=== PATIENT | male | born 1980 | race Caucasian/White ===

== ENCOUNTER 2019-11-28 09:52 | Outpatient (REF) | payer BC, SELFPAY ==
[2019-11-28 12:24] LABS: HCT 47.9 % (40.0-50.0); HGB 16.1 g/dL (13.5-17.5); Mean Corp. HGB Concentration 33.6 g/dL (32.0-36.0); Mean Corpuscular Hemoglobin 30.2 pg (27.0-33.0); Mean Corpuscular Volume 89.9 fL (80-95); Mean Platelet Volume 10.1 fL (8.0-11.0); Platelet Count 297 x1000/uL (130-400); RBC 5.33 m/cumm (4.50-6.00); RBC Distribution Width 12.7 % (11.8-14.1); White Blood Cell Count 6.87 k/cumm (4.4-10.8)
[2019-11-28 12:40] LABS: ALT 33 U/L (16-63); AST 14 U/L (15-37); Albumin 4.4 g/dL (3.4-5.0); Alkaline Phosphatase 52 U/L (46-116); Amylase 33 U/L (25-115); Anion Gap 9.2 mmol/L (3-11); BUN 13 mg/dL (7-18); Bilirubin, Total 0.7 mg/dL (0.2-1.0); CO2 27.8 mmol/L (21.0-32.0); Calcium 9.5 mg/dL (8.5-10.1); Chloride 103 mmol/L (98-107); Glucose 95 mg/dL (74-106); Lipase 79 U/L (73-393); Potassium 4.3 mmol/L (3.5-5.1); Sodium 140 mmol/L (136-145); Total Protein 7.5 g/dL (6.4-8.2)
== END 2019-11-28 10:12 ==
LOC: NCHCN 09:52
PROVIDERS: PCP Nurse Practitioner Family; Visit Provider Nurse Practitioner Family
DX: R10.11 Right upper quadrant pain (principal)
CPT/HCPCS: 80053; 83690; 85027; 82150

== ENCOUNTER 2019-12-02 02:09 | Outpatient (CLI) | payer BC, SELFPAY ==
--- NOTE | 2019-12-02 | DI.US_ITS ---
EXAM: US ABDOMEN CLINICAL HISTORY: RUQ ABD PAIN, R10.11 TECHNIQUE: Ultrasound performed using standard protocol. COMPARISON: No exams were available for comparison FINDINGS: Liver shows slightly increased echogenicity, consistent with mild fatty infiltration. No focal liver lesions or biliary dilatation is seen. The gallbladder has a normal appearance, without evidence of stones or wall thickening. The kidneys, spleen and aorta are unremarkable. The tail of the pancrea s is not well seen. IMPRESSION: Mild hepatic steatosis. No gallbladder abnormality. DATA REPOSITORY:
== END 2019-12-02 02:29 ==
PROVIDERS: PCP Nurse Practitioner Family; Visit Provider Nurse Practitioner Family
DX: R10.11 Right upper quadrant pain (principal); K76.0 Fatty (change of) liver, not elsewhere classified
CPT/HCPCS: 76700

== ENCOUNTER 2020-04-15 08:15 | Outpatient (REF) | payer BC, SELFPAY ==
[2020-04-15 15:03] LABS: Calculated LDL 115 mg/dL (<100); Cholesterol 183 mg/dL (<200); HDL Cholesterol 59 mg/dL (40-60); Triglyceride 46 mg/dL (<150)
== END 2020-04-15 08:35 ==
LOC: NCHCN 08:15
PROVIDERS: PCP Nurse Practitioner Family; Visit Provider Nurse Practitioner Family
DX: Z00.00 Encounter for general adult medical examination without abnormal findings (principal); Z13.220 Encounter for screening for lipoid disorders
CPT/HCPCS: 80061

== ENCOUNTER 2021-05-12 03:04 | Outpatient (CLI) | payer BC, SELFPAY ==
--- NOTE | 2021-05-12 15:05 | DI.MRI_ITS ---
Exam(s) MR BRAIN WO EXAM: MR BRAIN WO CLINICAL HISTORY: new perSistant daily headaches, lightheadedness,R51.9,R42 TECHNIQUE: Multiplanar multisequence MRI of the brain was performed. COMPARISON: No exams were available for comparison FINDINGS: VENTRICLES AND EXTRA AXIAL SPACES: Normal in size and morphology for the patient's age. MIDLINE SHIFT: None. CEREBRAL PARENCHYMA: No focus of restricted diffusion to suggest acute infarct. No space-occupying le blaine identified. HEMORRHAGE: None. BRAINSTEM/CEREBELLUM: Normal. CALVARIUM: Normal. VISUALIZED PARANASAL SINUSES/MASTOIDS:Clear. [place]: Normal flow void. PITUITARY GLAND: Unremarkable. OTHER FINDINGS: None. IMPRESSION: Unremarkable MRI of the brain. DATA REPOSITORY:
== END 2021-05-12 03:24 ==
PROVIDERS: Visit Provider Nurse Practitioner Adult Health
DX: R42 Dizziness and giddiness (principal); R51.9 Headache, unspecified
CPT/HCPCS: 70551

== ENCOUNTER 2022-11-15 16:05 | Outpatient (REF) | payer BC, SELFPAY ==
[2022-11-15 19:29] LABS: Bilirubin Negative (Negative); Blood Small (Negative); Clarity Clear (Clear); Glucose Negative (Negative); Ketones Negative (Negative); Leukocyte Esterase Negative (Negative); Nitrite Negative (Negative); Specific Gravity >= 1.030 (1.005-1.025); Urobilinogen 0.2 EU/dL (Up TO 0.2); pH 6.5 (5-8)
[2022-11-15 19:36] LABS: Bacteria Negative HPF (Negative); C & S Indicated? No; Casts Negative LPF (Negative); Crystals Negative HPF (Negative); Epithelial Cells Rare HPF (Negative); Mucus Negative (Negative); Other Cells Negative (Negative); RBC 0-2 HPF (0-2); WBC 0-2 HPF (0-5)
== END 2022-11-15 16:06 | disposition home or self-care (01) ==
LOC: NCHCN 16:05
PROVIDERS: Visit Provider Nurse Practitioner Family
DX: R31.9 Hematuria, unspecified (principal)
CPT/HCPCS: 81003; 81015

== ENCOUNTER 2022-11-27 13:26 | Outpatient (REF) | payer BC, SELFPAY ==
[2022-11-27 14:39] LABS: Abs Immature Grans 0.02 10^3/uL (0.0-0.06); Absolute Basophil Count 0.04 10^3/uL (0.0-0.2); Absolute Eosinophil Count 0.02 10^3/uL (0.0-0.7); Absolute Lymphocyte Count 1.48 10^3/uL (1.2-3.4); Absolute Monocyte Count 0.57 10^3/uL (0.1-0.8); Absolute Neutrophil Count 5.53 10^3/uL (1.2-6.7); Basophils % 0.5; Eosinophils % 0.3; HGB 16.7 g/dL (13.5-17.5); Immature Grans % 0.3; Lymphocytes % 19.3; MCH 29.6 pg (27.0-33.0); MCHC 34.1 % (32.0-36.0); MCV 87 fL (80-95); MPV 9.8 fL (8.0-11.0); Monocytes % 7.4; Neutrophils % 72.2; Platelet Count 310 10^3/uL (130-400); RBC 5.64 10^6/uL (4.36-5.78); RDW 12.4 % (11.8-14.1); RDW-SD 39.3 fL; WBC 7.66 10^3/uL (4.4-10.8)
[2022-11-27 14:54] LABS: ALT 29 U/L (16-63); AST 13 U/L (15-37); Albumin 4.9 g/dL (3.4-5.0); Alkaline Phosphatase 57 U/L (46-116); Anion Gap 10.7 mmol/L (3-11); BUN 17 mg/dL (7-18); Bilirubin, Total 0.6 mg/dL (0.2-1.0); CO2 27.3 mmol/L (21.0-32.0); CREATININE 0.8 mg/dL (0.70-1.30); Chloride 103 mmol/L (98-107); Estimated GFR 114.74 (mL/min/1.73m2); Glucose 102 mg/dL (74-106); Potassium 4.4 mmol/L (3.5-5.1); Sodium 141 mmol/L (136-145); Total Protein 8.2 g/dL (6.4-8.2)
[2022-11-27 22:55] LABS: PSA, Screening 1.6 ng/mL (<=2.5)
[2022-11-28 14:50] LABS: Chlamydia Result Negative (Negative); GC Result Negative (Negative)
== END 2022-11-27 13:27 | disposition home or self-care (01) ==
LOC: LBN 13:26
PROVIDERS: Visit Provider Specialist/Technologist Athletic Trainer
DX: R31.9 Hematuria, unspecified (principal); M54.9 Dorsalgia, unspecified
CPT/HCPCS: 80053; 84153; 87491; 87591; 85025; 87086

== ENCOUNTER 2023-07-27 16:40 | Outpatient (REF) | payer BC, SELFPAY ==
[2023-07-27 19:11] LABS: HCT 44.5 % (40.0-50.0); HGB 15.1 g/dL (13.5-17.5); MCH 30.1 pg (27.0-33.0); MCHC 33.9 % (32.0-36.0); MCV 89 fL (80-95); MPV 10.1 fL (8.0-11.0); Platelet Count 294 10^3/uL (130-400); RBC 5.01 10^6/uL (4.36-5.78); RDW 12.5 % (11.8-14.1); RDW-SD 40.7 fL; WBC 6.67 10^3/uL (4.4-10.8)
[2023-07-27 19:31] LABS: Anion Gap 8.1 mmol/L (3-11); BUN 19 mg/dL (7-18); CO2 26.9 mmol/L (21.0-32.0); CREATININE 0.8 mg/dL (0.70-1.30); Calcium 9.7 mg/dL (8.5-10.1); Chloride 104 mmol/L (98-107); Estimated GFR 114.02 (mL/min/1.73m2); FREE T4 0.99 ng/dL (0.76-1.46); Glucose 95 mg/dL (74-106); Potassium 4.1 mmol/L (3.5-5.1); Sodium 139 mmol/L (136-145); TSH 1.04 uIU/mL (0.36-3.74)
== END 2023-07-27 16:41 | disposition home or self-care (01) ==
LOC: NCHCN 16:40
PROVIDERS: Visit Provider Physician Assistant
DX: R42 Dizziness and giddiness (principal)
CPT/HCPCS: 80048; 85027; 84439; 84443

== ENCOUNTER 2023-11-02 15:48 | Outpatient (REF) | payer BC, SELFPAY ==
[2023-11-02 15:16] LABS: HCT 45.5 % (40.0-50.0); HGB 15.5 g/dL (13.5-17.5); MCH 29.3 pg (27.0-33.0); MCHC 34.1 % (32.0-36.0); MCV 86 fL (80-95); MPV 9.8 fL (8.0-11.0); Platelet Count 310 10^3/uL (130-400); RBC 5.29 10^6/uL (4.36-5.78); RDW 11.9 % (11.8-14.1); RDW-SD 37.5 fL; WBC 7.36 10^3/uL (4.4-10.8)
[2023-11-02 15:41] LABS: ALT 29 U/L (16-63); AST 15 U/L (15-37); Albumin 4.2 g/dL (3.4-5.0); Alkaline Phosphatase 51 U/L (46-116); Anion Gap 11.2 mmol/L (3-11); BUN 22 mg/dL (7-18); Bilirubin, Total 0.6 mg/dL (0.2-1.0); CO2 26.8 mmol/L (21.0-32.0); CREATININE 0.8 mg/dL (0.70-1.30); Calcium 9.6 mg/dL (8.5-10.1); Chloride 102 mmol/L (98-107); Estimated GFR 114.02 (mL/min/1.73m2); Glucose 99 mg/dL (74-106); Lipase 22 U/L (16-77); Potassium 4.3 mmol/L (3.5-5.1); Sodium 140 mmol/L (136-145); Total Protein 7.8 g/dL (6.4-8.2)
== END 2023-11-02 15:49 | disposition home or self-care (01) ==
LOC: NCHCN 15:48
PROVIDERS: PCP Physician Assistant; Visit Provider Physician Assistant
DX: K29.70 Gastritis, unspecified, without bleeding (principal)
CPT/HCPCS: 80053; 83690; 85027

== ENCOUNTER 2023-11-06 11:35 | Outpatient (REF) | payer BC, SELFPAY | END 2023-11-06 11:36 | disposition home or self-care (01) | LOC: LBN 11:35 | PROVIDERS: PCP Physician Assistant; Visit Provider Nurse Practitioner Family | DX: J02.9 Acute pharyngitis, unspecified (principal) | CPT/HCPCS: 87070 ==

== ENCOUNTER 2023-11-12 04:21 | Outpatient (CLI) | payer BC, SELFPAY | END 2023-11-12 04:22 | disposition home or self-care (01) | LOC: LBO 04:21 | PROVIDERS: PCP Physician Assistant; Visit Provider Physician Assistant | DX: K29.70 Gastritis, unspecified, without bleeding (principal) | CPT/HCPCS: 36415; 83013 ==

== ENCOUNTER 2024-10-13 15:40 | Emergency (ER) | payer BC, SELFPAY ==
--- NOTE | 2024-10-13 15:30 | RT.EKG_ITS ---
APPROVED REPORT Exam: Resting ECG Reason for Exam: chest pain Patient Location: E HR:69 bpm ECG Measurements Heart Rate 69 AXIS NC 172 P 69 QRSd 94 QRS 37 QT 375 T 47 QTc 403 Conclusion Sinus rhythm...normal P axis, V-rate 60- [address] segment or T wave abnormalities to suggest occlusive WA
[2024-10-13 15:54] VITALS: BP 139/82; PULSE 68; RESP 15; O2SAT 98
[2024-10-13 15:57] VITALS: RESP 20
--- NOTE | 2024-10-13 16:00 | DI.RAD_ITS ---
Exam(s) XR CHEST 2V PA LATERAL EXAM: XR CHEST 2V PA LATERAL CLINICAL HISTORY: Chest pain TECHNIQUE: 2D digital imaging was performed of the chest. Two images were obtained. PA and lateral views were obtained. COMPARISON: No exams were available for comparison FINDINGS: MEDIASTINUM: Normal. HEART: Normal. PULMONARY VASCULATURE: Normal. LUNGS: Clear. PLEURAL SPACE: No pleural effusion or pneumothorax. BONE:Within normal limits for the patient's age. OTHER FINDINGS:Normal. IMPRESSION: No acute pulmonary findings. DATA REPOSITORY: RADIATION DOSE DELIVERED:
[2024-10-13 16:17] LABS: Abs Immature Grans 0.03 10^3/uL (0.0-0.06); Absolute Basophil Count 0.05 10^3/uL (0.0-0.2); Absolute Eosinophil Count 0.13 10^3/uL (0.0-0.7); Absolute Lymphocyte Count 1.75 10^3/uL (1.2-3.4); Absolute Monocyte Count 0.83 10^3/uL (0.1-0.8); Absolute Neutrophil Count 6.26 10^3/uL (1.2-6.7); Basophils % 0.6 %; Eosinophils % 1.4 %; HCT 46.6 % (40.0-50.0); HGB 15.8 g/dL (13.5-17.5); Immature Grans % 0.3 %; Lymphocytes % 19.3 %; MCH 30.2 pg (27.0-33.0); MCHC 33.9 % (32.0-36.0); MCV 89 fL (80-95); MPV 9.5 fL (8.0-11.0); Monocytes % 9.2 %; Neutrophils % 69.2 %; Platelet Count 271 10^3/uL (130-400); RBC 5.24 10^6/uL (4.36-5.78); RDW 12.3 % (11.8-14.1); RDW-SD 40.5 fL; WBC 9.05 10^3/uL (4.4-10.8)
--- OUTSIDE RECORDS SUMMARY | 2024-10-13 16:33 | XMS_ITS | Encounter Summary ---
Author Organization [facility] Address [address] [place] [address] Care Team Providers Care Recording Studio Intern Name Role Phone Johann Rodriguez MD Primary Care Provider Unavailabl e Encounter Details Date Type Department Care Team (Late st Contact Info) Description 12/23/2009 Results Only [facility] Laboratory Services - [facility] ([facility]) [address] [place] [address] [phone] Joss Stephen MD [address] [place] [id number] Social History Tobacco Use Types Packs/Day Years Used Date Smoking Tobacco: Never Assessed Sex and Gender Information Value Date Recorded Sex Assigned at Not on file Legal Sex Male 18:26 EST Gender Identity Not on file Sexual Orientation Not on file documented as of this encounter Plan of Treatment Not on file documented as of this encounter Procedures Procedure Name Priority Date/Time Associated Diagnosis Comments SURGICAL PATHOLOGY Routine 12/23/2009 0:00 EDT documented in this encounter Results * SURGICAL PATHOLOGY (12/23/2009 0:00 EDT) Pathology Report: SURGICAL PATHOLOGY REPORT ? Reports generated via electronic interface contain original data; ? however they are lacking the format of the original report. ? Caution should be taken when reading/interpreti ng unformatted reports. ? Name: ? IZQUIERDO, JOSE T ? Accession #: ? [id number] ? : ? 1980 (Age: 29) ??M ? Collect Date: ? 12/23/2009 ? Location: ? [facility] ? Receive Date: ? 12/23/2009 ? Provider: JOSS STEPHEN MD ? Copy to: MOLLIE D CHAMBERLAIN ACID CORRECTION HAND ? TOBY ANTONIO MD ? Final Pathologic Diagnosis: ? Stomach, body, biopsies: ? - Gastric body mucosa with mild focal superficial chronic gastritis. ?- negative for Helicobacter-pylor i-like organisms on H&E. ? Document reviewed and electronically signed by: ? Naz Epperson, MBChB ? Report ??Date: 12/27/2009 16:25 ? By the signature above, the attending physician certifies that he/she has ? personally conducted a gross and/or microscopic examination of the described ? specimens and rendered or confirmed the above diagnosis. ? Specimen(s) Received: ? Stomach body ? Clinical History: ? Epigastric pain ? Gross Description: ? Received in Hollande's fixative labelled Jose Izquierdo and bx body of stomach are two gagnon-pink soft tissues averaging 0.6 x 0.2 x 0.2 cm. ??The ? specimen is entirely submitted in one cassette. ??(Jake Iqbal)/mms ? End of Report ? [facility] 12/23/2009 12/23/2009 7:2 6 EDT us Joss Stephen MD PATHOLOGY ORDERABLES Final Result [facility] [address] [place] [address] documented in this encounter Visit Diagnoses Not on filedocumented in this encounter Care Teams Recording Studio Intern Relationship Specialty Start Date End Date Johann Rodriguez MD PCP - General 12/23/09 12/26/09 documented as of this encounter
--- OUTSIDE RECORDS SUMMARY | 2024-10-13 16:33 | XMS_ITS | Clinical Summary ---
Author Organization [facility] Address [address] [place] [address] Care Team Providers Care Cull Grader Name Role Phone Alvaro Rothman DO Primary Care Provider [phone] Social History Tobacco Use Types Packs/Day Years Used Date Smoking Tobacco: Never Assessed Sex and Gender Information Value Date Recorded Sex Assigned at Not on file Legal Sex Male 18:26 EST Gender Identity Not on file Sexual Orientation Not on file Plan of Treatment Health Maintenance Due Date Last Done Comments Hepatitis C Screen 1980 Hepatitis B Vaccine (1 of 3 - 19+ 3-dose series) 01/31 COVID-19 Vaccine ( season) 2024 Insurance [facility] Care Teams Cull Grader Relationship Specialty Start Date End Date Alvaro Rothman DO [address] [place] [address] PCP - General 10/29/13
--- OUTSIDE RECORDS SUMMARY | 2024-10-13 16:33 | XMS_ITS | Referral Summary ---
Author Organization [facility] Address [address] [place] [address] Care Team Providers Care Aerobics Teacher Name Role Phone Alvaro Rothman DO Primary Care Provider [phone] Social History Tobacco Use Types Packs/Day Years Used Date Smoking Tobacco: Never Assessed Sex and Gender Information Value Date Recorded Sex Assigned at Not on file Legal Sex Male 18:26 EST Gender Identity Not on file Sexual Orientation Not on file Plan of Treatment Not on file Insurance [facility] Care Teams Aerobics Teacher Relationship Specialty Start Date End Date Alvaro Rothman DO [address] [place] [id number] PCP - General 10/29/13
--- OUTSIDE RECORDS SUMMARY | 2024-10-13 16:33 | XMS_ITS | Encounter Summary ---
Author Organization [facility] Address [address] [place] [address] Care Team Providers Care Admitting Clerk Name Role Phone Alvaro Rothman DO Primary Care Provider [phone] Encounter Details Date Type Department Care Team (Late st Contact Info) Description 02/08/2024 Lab Requisition [facility] Pathology & Laboratory Medicine - [facility] [address] [place] [address] Danny Odonnell MD [address] [place] [phone] Epigastric pain Social History Tobacco Use Types Packs/Day Years [...] Priority Date/Time Associated Diagnosis Comments SURGICAL PATHOLOGY Today 02/07/2024 13 :35 EDT Epigastric pain documented in this encounter Results * SURGICAL PATHOLOGY (02/07/2024 13:35 EDT) Note to Patient The following pathology results have been interpreted by your pathologist and may be available to you before your health provider has had the opportunity to review them. Please allow time for your provider to receive these results and explore management options, if applicable. 02/11/2024 15:44 EDT [facility] Final Diagnosis A. DUODENUM, BIOPSY: - Duodenal mucosa with no significant pathologic change. - No evidence of gluten-sensitive enteropathy (celiac sprue). B. DUODENUM, BULB, BIOPSY: - Duodenal mucosa with no significant pathologic change. C. STOMACH, ANTRUM, BIOPSY: - Antral-type mucosa with changes consistent with a mild reactive (chemical) gastropathy. - No intestinal metaplasia or dysplasia. - No evidence of Helicobacter pylori on routine H&E stain. D. STOMACH, BODY, BIOPSY: - Oxyntic-type mucosa with no significant pathologic change. - No intestinal metaplasia or dysplasia. - No evidence of Helicobacter pylori on routine H&E stain. 02/11/2024 15:44 [facility] Diagnosis Comment The technical component of the specimen processing was performed at the [facility] Pathology Department, [address] [place] [address] (CLIA [id number]). The professional component of the specimen evaluation (slide review and issuing of the final diagnosis) was performed at [facility], [address] [place] [address] (CLIA License Number [id number]). 02/11/2024 15:44 [facility] Attestation By the signature below, the attending physician certifies that they have 1) personally conducted a gross and/or microscopic examination of the described specimen(s), and/or personally interpreted the results of laboratory testing of the described specimen(s), and 2) personally rendered or confirmed the above diagnosis. 02/11/2024 15:44 [facility] at 1544 Clinical History EGD hx GERD, epigastric pain; clinical diagnosis code: R10.13 02/11/2024 15:44 [facility] Gross Description A. Received in formalin labelled with proper patient identification (initials H, N) and A. Duodenum are 3 gagnon-brown tissues (0.2 x 0.1 x 0.1 cm to 0.6 x 0.2 x 0.1 cm). Entirely submitted in A1. B. Received in formalin labelled with proper patient identification (initials H, N) and B. Duodenal bulb are 2 gagnon-brown tissues (0.4 x 0.2 x 0.1 cm and 0.6 x 0.1 x 0.1 cm). Entirely submitted in B1. C. Received in formalin labelled with proper patient identification (initials H, N) and C. Gastric antrum are 2 gagnon-brown tissues (0.2 x 0.2 x 0.1 cm and 0.4 x 0.3 x 0.2 cm). Entirely submitted in C1. D. Received in formalin labelled with proper patient identification (initials H, N) and D. Gastric body are 3 gagnon-brown tissues (0.3 x 0.1 x 0.1 cm to 0.5 x 0.2 x 0.1 cm). Entirely submitted in D1, however the smallest tissue may not survive processing. WARREN MCCABE(ASCP) 02/08/2024 8:20 02/11/2024 15:44 EDT [facility] Performing Lab [facility] 02/11/2024 15:44 EDT [facility] Scanned Images 02/11/2024 15:44 EDT [facility] Tissue GASTRIC CORPUS STRUCTURE / Unknown 02/07/2024 13:35 EDT 02/08/2024 7:41 EDT Tissue specimen (specimen) DUODENAL AMPULLA STRUCTURE / Unknown 02/07/2024 13:35 EDT 02/08/2024 7:41 EDT Tissue specimen (specimen) PYLORIC ANTRUM STRUCTURE / Unknown 02/07/2024 13:35 EDT 02/08/2024 7:41 EDT Tissue specimen (specimen) GASTRIC CORPUS STRUCTURE / Unknown 02/07/2024 13:35 EDT 02/08/2024 7:41 EDT us Danny Odonnell MD PATHOLOGY ORDERABLES Final Result [facility] [address] [place] [address] documented in this encounter Visit Diagnoses Diagnosis Epigastric pain Abdominal pain, epigastric documented in this encounter Care Teams Admitting Clerk Relationship Specialty Start Date End Date Alvaro Rothman DO [address] [place] [address] PCP - General 10/29/13 documented as of this encounter
--- OUTSIDE RECORDS SUMMARY | 2024-10-13 16:33 | XMS_ITS | Encounter Summary ---
Author Organization [facility] Address [address] [place] [address] Care Team Providers Care Parking Enforcement Officer Name Role Phone Celestino Acosta MD Primary Care Provider Unavail able Encounter Details Date Type Department Care Team (Late st Contact Info) Description 10/25/2013 Results Only [facility]- [facility] [phone] Desiree Rothman, DO [address] [place] [phone] Social History Tobacco Use Types Packs/Day Years [...] Date/Time Associated Diagnosis Comments SURGICAL PATHOLOGY Routine 10/25/2013 21 :40 EST documented in this encounter Results * SURGICAL PATHOLOGY (10/25/2013 21:40 EST) Pathology Report: SURGICAL PATHOLOGY REPORT Reports generated via electronic interface contain original data; however they are lacking the format of the original report. Caution should be taken when reading/interpreti ng unformatted reports. Name: ? JOSE IZQUIERDO ? Accession #: ? [id number] ? : ? 1980 (Age: 33) ??M ? Collect Date: ? 10/25/2013 ? Location: ? [facility] ? Receive Date: ? 10/27/2013 ? Provider: DESIREE ROTHMAN DO Copy to: ? Final Pathologic Diagnosis: APPENDIX, APPENDECTOMY: - ??Acute appendicitis. Document reviewed and electronically signed by: MALINI XAVIER MD Report ??Date: 11/02/2013 12:57 By the signature above, the attending physician certifies that he/she has personally conducted a gross and/or microscopic examination of the described specimens and rendered or confirmed the above diagnosis. Specimen(s) Received: Appendix Clinical History: Appendicitis Gross Description: ? Received in formalin labelled with proper patient identification (initials H, N) and appendix is a vermiform appendix (7.6 cm in length x 0.5-0.8 cm in diameter), with a moderate amount of attached mesoappendix. The proximal margin is stapled. ? The serosa is pink-gagnon and hyperemic. ??The average wall thickness is 0.2 cm with no discernable perforation site. The lumen ranges from 0.1 cm to 0.2 cm in diameter and contains no fecalith. The proximal margin is inked black. ? The section adjacent to the proximal stapled margin, two leasing representative cross sections and one-half of the longitudinally bisected distal tip are submitted in 1. Tequila Iqbal 10/28/2013 09:52 AM End of Report [facility] 10/25/2013 21:4 0 EST 10/27/2013 21:40 EST us Desiree Rothman DO PATHOLOGY ORDERABLES Final Res ult [facility] [address] [place] [address] documented in this encounter Visit Diagnoses Not on filedocumented in this encounter Care Teams Parking Enforcement Officer Relationship Specialty Start Date End Date Celestino Acosta MD PCP - General 12/27/09 10/28/13 documented as of this encounter
--- OUTSIDE RECORDS SUMMARY | 2024-10-13 16:33 | XMS_ITS | Encounter Summary ---
Author Organization [facility] Address [address] [place] [address] Care Team Providers Care Material Loader Name Role Phone Alvaro Rothman DO Primary Care Provider [phone] Encounter Details Date Type Department Care Team (Late st Contact Info) Description 11/27/2022 Lab Requisition [facility] Pathology & Laboratory Medicine - [facility] [address] [place], [place] [id number] Outr Resulting Lab, Provider Social History Tobacco Use Types Packs/Day Years [...] Procedure Name Priority Date/Time Associated Diagnosis Comments CHLAMYDIA/N. GONORRHOEAE AMPLIFIED NUCLEIC ACID Routine 11/27/2022 11:20 EST documented in this encounter Results * CHLAMYDIA/N. GONORRHOEAE AMPLIFIED RNA (11/27/2022 11:20 EST) Neisseria gonorrhoeae Result Negative Negative 11/28/2022 14:45 EST [facility] Chlamydia trachomatis Result Negative Negative 11/28/2022 14:45 EST [facility] Urine URINE / Unknown 11/27/2022 1 1:20 EST 11/27/2022 22:05 EST us Provider Outr Resulting Lab MICROBIOLOGY - GENER AL ORDERABLES Final Result [facility] [address] [place] [address] documented in this encounter Visit Diagnoses Not on filedocumented in this encounter Care Teams Material Loader Relationship Specialty Start Date End Date Alvaro Rothman DO [address] [place] [address] PCP - General 10/29/13 documented as of this encounter
--- OUTSIDE RECORDS SUMMARY | 2024-10-13 16:33 | XMS_ITS | Encounter Summary ---
Author Organization [facility] Address [address] [place] [address] Care Team Providers Care Gaming Table Operator Name Role Phone Alvaro Rothman DO Primary Care Provider [phone] Encounter Details Date Type Department Care Team (Late st Contact Info) Description 11/27/2022 Lab Requisition [facility] Pathology & Laboratory Medicine - [facility] [address] [place], [place] [address] Outr Resulting Lab, Provider Social History Tobacco [...] Procedure Name Priority Date/Time Associated Diagnosis Comments PSA TOTAL, DIAGNOSTIC Routine 11/27/2022 11:20 EST documented in this encounter Results * PSA TOTAL, DIAGNOSTIC (11/27/2022 11:20 EST) PSA 1.6 <=2.5 ng/mL 11/27/2022 22:50 EST [facility] Blood VENOUS BLOOD / Unknown 11/27/2022 11:20 EST 11/27/2022 21:52 EST Narrative [facility] - 11/27/2022 22:50 EST NOTE: Serum PSA concentration should not be interpreted as absolute evidence for the presence or absence of malignant disease. Assayed on Siemens ADVIA Real Life Plusaur XPT using chemiluminescent technology.??Values obtained by using different assay methods cannot be used interchangeably. us Provider Outr Resulting Lab CHEMISTRY & BLOOD GA S ORDERABLES Final Result [facility] [address] [place] [address] documented in this encounter Visit Diagnoses Not on filedocumented in this encounter Care Teams Gaming Table Operator Relationship Specialty Start Date End Date Alvaro Rothman DO [address] [place], [place] [id number] PCP - General 10/29/13 documented as of this encounter
--- OUTSIDE RECORDS SUMMARY | 2024-10-13 16:33 | XMS_ITS | Encounter Summary ---
Author Organization [facility] Address [address] [place] [address] Care Team Providers Care Granulator Name Role Phone Celestino Acosta MD Primary Care Provider Unavail able Encounter Details Date Type Department Care Team (Latest Contact Info) Description 10/25/2013 12:43 EST - 10/25/2013 23:59 EST Hospital Encounter [address] [address] Unknown, Provider, MD Discharge Disposition: Home or Self Care Social History Tobacco Use Types Packs/Day Years Used Date Smoking Tobacco: Never Assessed Sex and Gender Information Value Date Recorded Sex Assigned at Not on file Legal Sex Male 18:26 EST Gender Identity Not on file Sexual Orientation Not on file documented as of this encounter Discharge Disposition Disposition Code Departure Means Destination Home or Self Longterm documented in this encounter Plan of Treatment Not on file documented as of this encounter Visit Diagnoses Not on filedocumented in this encounter Care Teams Granulator Relationship Specialty Start Date End Date Celestino Acosta MD PCP - General 12/27/09 10/28/13 documented as of this encounter
[2024-10-13 16:40] LABS: ALT 24 U/L (16-63); AST 15 U/L (15-37); Albumin 4.3 g/dL (3.4-5.0); Alkaline Phosphatase 49 U/L (46-116); Anion Gap 6.5 mmol/L (3-11); BUN 19 mg/dL (7-18); Bilirubin, Total 0.62 mg/dL (0.2-1.0); CO2 31.5 mmol/L (21.0-32.0); CREATININE 1.1 mg/dL (0.70-1.30); Calcium 9.5 mg/dL (8.5-10.1); Chloride 105 mmol/L (98-107); Estimated GFR 85.95 (mL/min/1.73m2); Glucose 90 mg/dL (74-106); Lipase 27 U/L (<78); NT-proBNP 26 pg/mL (<300); PTT Activated 23.1 sec (20.6-30.2); Potassium 3.9 mmol/L (3.5-5.1); Prothrombin Time 9.9 sec (9.1-11.1); Sodium 143 mmol/L (136-145); Total Protein 7.8 g/dL (6.4-8.2)
[2024-10-13 16:42] LABS: Troponin I < 4 ng/L (<or=76)
--- NOTE | 2024-10-13 17:36 | ED.GENADUL_ITS ---
Discharge Plan Disposition Patient Disposition: Home Condition: Good Discharge Details Clinical Impression: Chest pain Primary Care Provider: Jatin Sutherland ED Provider: Jane Carney Home Meds and New Rx's Prescriptions: Discontinued prochlorperazine maleate 5 mg tablet See Rx Instructions PO TID PRN (Reason: nausea and vomiting) Qty: 30 3RF Rx Instructions: 5-10 PO three times a day PRN; Discharge Instructions Instructions: Chest Pain, Adult ED Additional Instructions: Continue to use tylenol, ibuprofen, and lidocaine patches at home. Call your primary care doctor in the morning to schedule an appointment for within the next 72 hours to followup on your visit here. Return to the emergency department for new or worsening symptoms including new/different/worse chest pain, difficutly breathing, feeling like you are going to pass out, or if you have any other concerns. HPI General Mode of arrival: ambulatory . Date/Time Provider Initiated Documentation: 10/13/24 16:10 . Limitations to Documentation: no limitations . Information obtained by: patient . HPI Narrative: 44yo M presenting from for chest pain. Crampy, left sided, non-radiating. Pain has been present on and of for about 2 weeks. Initially it was worse when moving his head or left shoulder, however now it seems unaffected by movement when it is present. Slightly improved with tylenol and ibuprofen and lidocaine patches at home. Not positional. Not worse with exertion. No associated shortness of breath. Does not recall any injury to the area, but did attribute to a pulled muscle at onset (is working on his house). Otherwise in his usual state of health with no fevers, chills, rash, nausea, vomiting, abdominal pain, LE edema, or other concerns. Related Data Allergies Allergy/AdvReac Type Severity Reaction Status Date / Time No Known Allergies Allergy Unverified 10/13/24 18:06 General Stated Complaint: Chest Pain ANGÉLICA: 3 Review of Systems Narrative: see HPI Exam Narrative Exam Narrative: General: Alert, well appearing, well nourished, in no acute distress. Head: Normocephalic, atraumatic Neck: Trachea midline, ?Neck supple. ENT: ?MMM.? No oropharygeal lesions or exudate. Cardiac: ?RRR, no murmurs appreciated Resp: No respiratory distress. CTAB. Abd: ?Soft, non-distended, nontender Extremities: ?No deformities.? No peripheral edema. Neurologic: GCS 15. ? Moves all extremities freely against gravity Course Vital Signs Vital signs: Vital Signs Pulse 68 10/13/24 15:54 Respiratory Rate 15 10/13/24 15:54 Blood Pressure 139/82 10/13/24 15:54 Pulse Oximetry 98 10/13/24 15:54 Pulse 68 10/13/24 15:54 Respiratory Rate 20 10/13/24 15:57 Respiratory Effort Normal 10/13/24 15:57 Respiratory Depth Normal 10/13/24 15:57 Respiratory Pattern Normal 10/13/24 15:57 Blood Pressure 139/82 10/13/24 15:54 Blood Pressure Position Sitting 10/13/24 15:54 Pulse Oximetry 98 10/13/24 15:54 Oxygen Delivery Method Room Air 10/13/24 15:54 Oxygen Flow Rate 0 10/13/24 15:54 Lab/Test Results Lab/Test Results: Laboratory Tests Range/Units 10/13/24 16:10 WBC (4.4-10.8) 10^3/uL 9.05 RBC (4.36-5.78) 10^6/uL 5.24 Hgb (13.5-17.5) g/dL 15.8 Hct (40.0-50.0) % 46.6 MCV (80-95) fL 89 MCH (27.0-33.0) pg 30.2 MCHC (32.0-36.0) % 33.9 RDW (11.8-14.1) % 12.3 Plt Count (130-400) 10^3/uL 271 MPV (8.0-11.0) fL 9.5 Immature Gran % % 0.3 Neutrophils % % 69.2 Lymphocytes % % 19.3 Monocytes % % 9.2 Eosinophils % % 1.4 Basophils % % 0.6 Nucleated RBC % (0.0-0.3) % 0.0 Absolute Neutrophils (1.2-6.7) 10^3/uL 6.26 Absolute Lymphocytes (1.2-3.4) 10^3/uL 1.75 Absolute Monocytes (0.1-0.8) 10^3/uL 0.83 H Absolute Eosinophils (0.0-0.7) 10^3/uL 0.13 Absolute Basophils (0.0-0.2) 10^3/uL 0.05 PT (9.1-11.1) sec 9.9 INR (0.9-1.1) 1.0 APTT (20.6-30.2) sec 23.1 Sodium (136-145) mmol/L 143 Potassium (3.5-5.1) mmol/L 3.9 Chloride (98-107) mmol/L 105 Carbon Dioxide (21.0-32.0) mmol/L 31.5 Anion Gap (3-11) mmol/L 6.5 BUN (7-18) mg/dL 19 H Creatinine (0.70-1.30) mg/dL 1.1 Est GFR (CKD-EPI 2020) (mL/min/1.73m2) 85.95 Glucose (74-106) mg/dL 90 Calcium (8.5-10.1) mg/dL 9.5 Magnesium (1.8-2.4) mg/dL 2.0 Total Bilirubin (0.2-1.0) mg/dL 0.62 AST (15-37) U/L 15 ALT (16-63) U/L 24 Alkaline Phosphatase (46-116) U/L 49 Troponin I (<or=76) ng/L < 4 NT-Pro-B Natriuret Pep (<300) pg/mL 26 Total Protein (6.4-8.2) g/dL 7.8 Albumin (3.4-5.0) g/dL 4.3 Lipase (<78) U/L 27 Medical Decision Making 44yo M presenting from for 2 weeks of intermittent crampy, left sided, non- radiating chest pain. Vital signs reassuring on arrival. Well appearing on exam, lungs CTAB, no reproducible tenderness. EKG NSR, appropriate intervals, no ST segment or T wave abnormalities to suggest occlusive TX. PERC negative; would not get dimer or CT imaging. Labs reviewed as below, CBC reassuring with no leukoctosis or anemia, CMP with no actionable abnormalities, Mg normal, coags normal, lipase normal (unlikely pancreatitis), BNP normal, initial troponon negative and 1 hour repeat 4. CXR independently reviewed; no focal pneumonia or pneumothorax on my view, agree with radiology read below. HEART score low-risk; would not further pursue ACS/trend troponin/etc. On reassessment he remains well appearing with reassuring vital signs. Unclear etiology of pain, ?MSK. Will treat with toradol, lidocaine patch, and advise close PCP followup. Discharged home; discharge instructions and return precautions were reviewed with patient who verbalized understanding. All questions were answered and he is in full agreement with the plan. Imaging Data Radiologic Study: Imaging: X-Ray Radiologist's impression: IMPRESSION: No acute pulmonary findings. Lab Data Lab results reviewed: Yes I reviewed the patient's lab results. Labs: Laboratory Tests Range/Units 10/13/24 10/13/24 16:10 17:15 WBC (4.4-10.8) 10^3/uL 9.05 RBC (4.36-5.78) 10^6/uL 5.24 Hgb (13.5-17.5) g/dL 15.8 Hct (40.0-50.0) % 46.6 MCV (80-95) fL 89 MCH (27.0-33.0) pg 30.2 MCHC (32.0-36.0) % 33.9 RDW (11.8-14.1) % 12.3 Plt Count (130-400) 10^3/uL 271 MPV (8.0-11.0) fL 9.5 Immature Gran % % 0.3 Neutrophils % % 69.2 Lymphocytes % % 19.3 Monocytes % % 9.2 Eosinophils % % 1.4 Basophils % % 0.6 Nucleated RBC % (0.0-0.3) % 0.0 Absolute Neutrophils (1.2-6.7) 10^3/uL 6.26 Absolute Lymphocytes (1.2-3.4) 10^3/uL 1.75 Absolute Monocytes (0.1-0.8) 10^3/uL 0.83 H Absolute Eosinophils (0.0-0.7) 10^3/uL 0.13 Absolute Basophils (0.0-0.2) 10^3/uL 0.05 PT (9.1-11.1) sec 9.9 INR (0.9-1.1) 1.0 APTT (20.6-30.2) sec 23.1 Sodium (136-145) mmol/L 143 Potassium (3.5-5.1) mmol/L 3.9 Chloride (98-107) mmol/L 105 Carbon Dioxide (21.0-32.0) mmol/L 31.5 Anion Gap (3-11) mmol/L 6.5 BUN (7-18) mg/dL 19 H Creatinine (0.70-1.30) mg/dL 1.1 Est GFR (CKD-EPI 2020) (mL/min/1.73m2) 85.95 Glucose (74-106) mg/dL 90 Calcium (8.5-10.1) mg/dL 9.5 Magnesium (1.8-2.4) mg/dL 2.0 Total Bilirubin (0.2-1.0) mg/dL 0.62 AST (15-37) U/L 15 ALT (16-63) U/L 24 Alkaline Phosphatase (46-116) U/L 49 Troponin I (<or=76) ng/L < 4 4 NT-Pro-B Natriuret Pep (<300) pg/mL 26 Total Protein (6.4-8.2) g/dL 7.8 Albumin (3.4-5.0) g/dL 4.3 Lipase (<78) U/L 27 Quality:SDOH Health Related Social Needs: No Data to Display PFSH All Active Problems (Updated 10/13/24 @ 18:07 by Jane Carney MD) Chest pain (Acute) Contact dermatitis (Acute) Gastritis (Acute) Sore throat (Acute) Hematuria (Acute) Groin pain, chronic, right (Acute) Back pain (Acute) Head injury (Acute) New daily persistent headache (Acute) Surgical History History of repair of anterior cruciate ligament of left knee Status post appendectomy (10/25/13) Social History (Updated 05/05/21 @ 13:43 by Cecy Bermudez) Smoking/Tobacco Use Status: Former Tobacco Use Smoking risk assessment performed?: Yes Drug use: Never Do you feel safe in your relationship?: Yes
[2024-10-13 17:38] LABS: Troponin I 4 ng/L (<or=76)
[2024-10-13] MEDS: Ketorolac 15 MG/ML VIAL IM (18:07)
[2024-10-13] MEDS: Lidocaine 5% Patch 1 PATCH TP (18:08)
[2024-10-13 18:55] VITALS: PULSE 68; RESP 16; TEMP 36.6; O2SAT 98
== END 2024-10-13 18:55 | disposition home or self-care (01) ==
PROVIDERS: Emergency Provider Student in an Organized Health Care Education/Training Program; PCP Physician Assistant
DX: R07.9 Chest pain, unspecified (principal)
CPT/HCPCS: 80053; 83690; 93005; 96372; 99284; 71046; 83735; 83880; 84484; 85025; 85610; 85730; 93010; 99283; J1885

== ENCOUNTER 2024-10-23 20:58 | Outpatient (REF) | payer BC, SELFPAY ==
[2024-10-23 18:57] LABS: Abs Immature Grans 0.02 10^3/uL (0.0-0.06); Absolute Basophil Count 0.03 10^3/uL (0.0-0.2); Absolute Eosinophil Count 0.06 10^3/uL (0.0-0.7); Absolute Lymphocyte Count 1.64 10^3/uL (1.2-3.4); Absolute Monocyte Count 0.49 10^3/uL (0.1-0.8); Absolute Neutrophil Count 3.19 10^3/uL (1.2-6.7); Basophils % 0.6 %; Eosinophils % 1.1 %; HCT 45.8 % (40.0-50.0); HGB 15.2 g/dL (13.5-17.5); Immature Grans % 0.4 %; Lymphocytes % 30.2 %; MCH 29.5 pg (27.0-33.0); MCHC 33.2 % (32.0-36.0); MCV 89 fL (80-95); MPV 10.1 fL (8.0-11.0); Neutrophils % 58.7 %; Platelet Count 257 10^3/uL (130-400); RBC 5.16 10^6/uL (4.36-5.78); RDW 12.1 % (11.8-14.1); WBC 5.43 10^3/uL (4.4-10.8)
[2024-10-23 19:18] LABS: ALT 31 U/L (16-63); AST 19 U/L (15-37); Albumin 4.3 g/dL (3.4-5.0); Alkaline Phosphatase 57 U/L (46-116); BUN 16 mg/dL (7-18); Bilirubin, Total 0.63 mg/dL (0.2-1.0); CREATININE 0.9 mg/dL (0.70-1.30); Calcium 9.2 mg/dL (8.5-10.1); Chloride 107 mmol/L (98-107); Estimated GFR 109.36 (mL/min/1.73m2); Glucose 99 mg/dL (74-106); Potassium 4.2 mmol/L (3.5-5.1); Sodium 145 mmol/L (136-145); Total Protein 7.5 g/dL (6.4-8.2)
--- OUTSIDE RECORDS SUMMARY | 2024-10-23 21:00 | XMS_ITS | Referral Summary ---
Author Organization [facility] Address [address] [place] [address] Care Team Providers Care Trauma Coordinator Name Role Phone Alvaro Rothman DO Primary Care Provider [phone] Social History Tobacco Use Types Packs/Day Years Used Date Smoking Tobacco: Never Assessed Sex and Gender Information Value Date Recorded Sex Assigned at Not on file Legal Sex Male 18:26 EST Gender Identity Not on file Sexual Orientation Not on file Plan of Treatment Not on file Insurance [facility] Care Teams Trauma Coordinator Relationship Specialty Start Date End Date Alvaro Rothman DO [address] [place] [id number] PCP - General 10/29/13
--- OUTSIDE RECORDS SUMMARY | 2024-10-23 21:00 | XMS_ITS | Encounter Summary ---
Author Organization [facility] Address [address] [place] [address] Care Team Providers Care Convertible Power Shovel Operator Name Role Phone Celestino Acosta MD Primary Care Provider Unavail able Encounter Details Date Type Department Care Team (Latest Contact Info) Description 10/25/2013 12:43 EST - 10/25/2013 23:59 EST Hospital Encounter [address] [address] Unknown, Provider, MD Discharge Disposition: Home or [...] Code Departure Means Destination Home or Self [facility] documented in this encounter Plan of Treatment Not on file documented as of this encounter Visit Diagnoses Not on filedocumented in this encounter Care Teams Convertible Power Shovel Operator Relationship Specialty Start Date End Date Celestino Acosta MD PCP - General 12/27/09 10/28/13 documented as of this encounter
--- OUTSIDE RECORDS SUMMARY | 2024-10-23 21:00 | XMS_ITS | Clinical Summary ---
Author Organization [facility] Address [address] [place] [address] Care Team Providers Care Parts Cataloguer Name Role Phone Alvaro Rothman DO Primary Care Provider [phone] Social History Tobacco Use Types Packs/Day Years [...] 01/31 COVID-19 Vaccine ( season) 2024 Insurance [facility] Care Teams Parts Cataloguer Relationship Specialty Start Date End Date Alvaro Rothman DO [address] [place] [address] PCP - General 10/29/13
--- OUTSIDE RECORDS SUMMARY | 2024-10-23 21:00 | XMS_ITS | Encounter Summary ---
Author Organization [facility] Address [address] [place] [address] Care Team Providers Care Table Games Dealer Name Role Phone Alvaro Rothman DO Primary Care Provider [phone] Encounter Details Date Type Department Care Team (Late st Contact Info) Description 11/27/2022 Lab Requisition [facility] Pathology & Laboratory Medicine - [facility] [address] [place], [place] [id number] Outr Resulting Lab, Provider Social History Tobacco [...] gonorrhoeae Result Negative Negative 11/28/2022 14:45 EST [facility] Chlamydia trachomatis Result Negative Negative 11/28/2022 14:45 EST [facility] Urine URINE / Unknown 11/27/2022 1 1:20 EST 11/27/2022 22:05 EST us Provider Outr Resulting Lab MICROBIOLOGY - GENER AL ORDERABLES Final Result [facility] [address] [place] [address] documented in this encounter Visit Diagnoses Not on filedocumented in this encounter Care Teams Table Games Dealer Relationship Specialty Start Date End Date Alvaro Rothman DO [address] [place] [address] PCP - General 10/29/13 documented as of this encounter
--- OUTSIDE RECORDS SUMMARY | 2024-10-23 21:00 | XMS_ITS | Encounter Summary ---
Author Organization [facility] Address [address] [place] [address] Care Team Providers Care Director Security Management Name Role Phone Johann Rodriguez MD Primary Care Provider Unavailabl e Encounter Details Date Type Department Care Team (Late st Contact Info) Description 12/23/2009 Results Only [facility] Laboratory Services - [facility] ([facility] [address] [place] [address] [phone] Joss Stephen MD [address] [place] [id number] Social History Tobacco Use Types Packs/Day Years [...] IZQUIERDO, JOSE T ? Accession #: ? [id number] ? : ? 1980 (Age: 29) ??M ? Collect Date: ? 12/23/2009 ? Location: ? [facility] ? Receive Date: ? 12/23/2009 ? Provider: JOSS STEPHEN MD ? Copy to: MOLLIE D CHAMBERLAIN SUPERVISORY TRAINING SPECIALIST ? TOBY ANTONIO MD ? Final Pathologic [...] Result [facility] [address] [place] [address] documented in this encounter Visit Diagnoses Not on filedocumented in this encounter Care Teams Director Security Management Relationship Specialty Start Date End Date Johann Rodriguez MD PCP - General 12/23/09 12/26/09 documented as of this encounter
--- OUTSIDE RECORDS SUMMARY | 2024-10-23 21:00 | XMS_ITS | Encounter Summary ---
Author Organization [facility] Address [address] [place] [address] Care Team Providers Care Swing Tender Name Role Phone Alvaro Rothman DO Primary Care Provider [phone] Encounter Details Date Type Department Care Team (Late st Contact Info) Description 02/08/2024 Lab Requisition [facility] Pathology & Laboratory Medicine - [facility] [address] [place] [address] Danny Odonnell MD [address] [place] [phone] Epigastric pain Social History Tobacco Use [...] management options, if applicable. 02/11/2024 15:44 EDT [facility] Final Diagnosis A. DUODENUM, BIOPSY: [...] pylori on routine H&E stain. 02/11/2024 15:44 [facility] Diagnosis Comment The technical component of the specimen processing was performed at the [facility] Pathology Department, [address] [place] [address] (CLIA [id number]). The professional component of the specimen evaluation (slide review and issuing of the final diagnosis) was performed at [facility], [address] [place] [address] (CLIA License Number [id number]). 02/11/2024 15:44 [facility] Attestation By the signature below, the attending physician certifies that they have 1) personally conducted a gross and/or microscopic examination of the described specimen(s), and/or personally interpreted the results of laboratory testing of the described specimen(s), and 2) personally rendered or confirmed the above diagnosis. 02/11/2024 15:44 [facility] at 1544 Clinical History EGD hx GERD, epigastric pain; clinical diagnosis code: R10.13 02/11/2024 15:44 [facility] Gross Description A. Received in [...] WARREN MCCABE(ASCP) 02/08/2024 8:20 02/11/2024 15:44 EDT [facility] Performing Lab [facility] 02/11/2024 15:44 EDT [facility] Scanned Images 02/11/2024 15:44 EDT [facility] Tissue GASTRIC CORPUS STRUCTURE / [...] Danny Odonnell MD PATHOLOGY ORDERABLES Final Result [facility] [address] [place] [address] documented in this encounter Visit Diagnoses Diagnosis Epigastric pain Abdominal pain, epigastric documented in this encounter Care Teams Swing Tender Relationship Specialty Start Date End Date Alvaro Rothman DO [address] [place] [address] PCP - General 10/29/13 documented as of this encounter
--- OUTSIDE RECORDS SUMMARY | 2024-10-23 21:00 | XMS_ITS | Encounter Summary ---
Author Organization [facility] Address [address] [place] [address] Care Team Providers Care Beamster Name Role Phone Celestino Acosta MD Primary Care Provider Unavail able Encounter Details Date Type Department Care Team (Late st Contact Info) Description 10/25/2013 Results Only [facility] [phone] Desiree Rothman, DO [address] [place] [address] Social History Tobacco Use Types [...] ? JOSE IZQUIERDO ? Accession #: ? [id number] ? : ? 1980 (Age: 33) ??M [...] adjacent to the proximal stapled margin, two inbound customer service representative cross sections and one-half of the longitudinally bisected distal tip are submitted in 1. Tequila Iqbal 10/28/2013 09:52 AM End of Report [facility] 10/25/2013 21:4 0 EST 10/27/2013 21:40 EST us Desiree Rothman DO PATHOLOGY ORDERABLES Final Res ult [facility] [address] [place] [address] documented in this encounter Visit Diagnoses Not on filedocumented in this encounter Care Teams Beamster Relationship Specialty Start Date End Date Celestino Acosta MD PCP - General 12/27/09 10/28/13 documented as of this encounter
--- OUTSIDE RECORDS SUMMARY | 2024-10-23 21:00 | XMS_ITS | Encounter Summary ---
Author Organization [facility] Address [address] [place] [address] Care Team Providers Care Continuing Education Dean Name Role Phone Alvaro Rothman DO Primary Care Provider [phone] Encounter Details Date Type Department Care Team (Late st Contact Info) Description 11/27/2022 Lab Requisition [facility] Pathology & Laboratory Medicine - [facility] [address] [place], [place] [phone] Outr Resulting Lab, Provider Social History Tobacco [...] PSA 1.6 <=2.5 ng/mL 11/27/2022 22:50 EST [facility] Blood VENOUS BLOOD / Unknown 11/27/2022 11:20 EST 11/27/2022 21:52 EST Narrative [facility] - 11/27/2022 22:50 EST NOTE: Serum PSA concentration should not be interpreted as absolute evidence for the presence or absence of malignant disease. Assayed on Siemens ADVIA ProtoShareaur XPT using chemiluminescent technology.??Values obtained by using different assay methods cannot be used interchangeably. us Provider Outr Resulting Lab CHEMISTRY & BLOOD GA S ORDERABLES Final Result [facility] [address] [place] [address] documented in this encounter Visit Diagnoses Not on filedocumented in this encounter Care Teams Continuing Education Dean Relationship Specialty Start Date End Date Alvaro Rothman DO [address] [place], [place] [phone] PCP - General 10/29/13 documented as of this encounter
== END 2024-10-23 20:59 | disposition home or self-care (01) ==
LOC: NCHCN 20:58
PROVIDERS: PCP Physician Assistant; Visit Provider Nurse Practitioner Family
DX: R07.9 Chest pain, unspecified (principal)
CPT/HCPCS: 80053; 85025